=== PATIENT | male | born 1970 | race Caucasian/White ===

== ENCOUNTER → 2017-12-30 | Outpatient (CLI) | payer OTHER ==
[~2017-12-30] MED LIST: FLAGYL500 MG PO; FLUCONAZOLE150 MG PO; HYDROCODON-ACE1 EAC7 PO; LEVAQUIN500 MG PO; ZOLPIDEM TART6.25 MG PO
== END | disposition home or self-care (01) ==
LOC: AMB 08:55
PROC: 0HB1XZZ Excision of Face Skin, External Approach (ICD-10-PCS; principal; 2017-12-30)
DX: L72.3 Sebaceous cyst (principal)